=== PATIENT | female | born 1990 | race African-American/Black ===

== ENCOUNTER 2017-08-25 21:07 | Emergency (ER) | payer OTHER, MEDICAID ==
[~2017-08-25] VITALS: Ht 160 cm; Wt 73.5 kg
[~2017-08-25 21:07] MED LIST: DEPO-PROVE150 MG/11 IM; EC-NAPROSYN500 M1 PO; NAPROSYN500 MG PO; NOHOMEMEDICATIONS; NORVASC2.5 MG PO; ONDANSETRON HCL4 M2 PO; PRENA1 CHEW TA1.4 MG PO; PROTONIX40 M4 PO; SPRINTEC1 EACH PO; TRAMADOL 50 MG50 MG PO
[2017-08-25] MEDS ORDERED: CYMBALTA60 MG PO (21:19)
[2017-08-25 21:36] LABS: URINE BILIRUBIN NEGATIVE (Negative); URINE BLOOD NEGATIVE (Negative); URINE CLARITY CLEAR; URINE COLOR YELLOW; URINE GLUCOSE-RANDOM NEGATIVE (Negative); URINE KETONES NEGATIVE (Negative); URINE LEUKOCYTES-REFLEX TRACE (Negative); URINE NITRITE-REFLEX NEGATIVE (Negative); URINE PROTEIN NEGATIVE (Negative); URINE SPECIFIC GRAVITY 1.015 (1.005-1.030); URINE UROBILINOGEN 0.2 E.U./dl (0.2-1.0)
[2017-08-25 21:37] LABS: HEMATOCRIT 29.2 % (37.0-47.0); HEMOGLOBIN 9.9 gm/dL (12.0-15.0); MCH 22.7 pg (26.0-34.0); MCHC 33.9 g/dL (28.0-37.0); MCV 66.7 fL (80.0-100.0); NUCLEATED RBCS 0 /100WBC; PLATELET COUNT* 346 thou/uL (150-400); RBC 4.38 mil/uL (4.20-5.00); RDW-CV 20.8 % (10.5-14.5); WBC 10.6 thou/uL (4.0-11.0)
[2017-08-25 21:51] LABS: CALCIUM 8.2 mg/dL (8.5-10.1); CREATININE 1.1 mg/dL (0.6-1.3); POTASSIUM 3.9 mmol/L (3.5-5.1)
[2017-08-25 21:55] LABS: ALBUMIN 3.2 g/dL (3.4-5.0); TOTAL BILIRUBIN 0.2 mg/dL (<0.1-1.0)
[2017-08-25 22:17] LABS: SQUAMOUS >10 Many /LPF (0-3)
[2017-08-25 22:18] LABS: CASTS None Seen /LPF (None Seen); CRYSTALS None Seen /LPF (None Seen); URINE RBC None Seen /HPF (0-2); URINE WBC-REFLEX 6-15 Few /HPF (0-5)
[2017-08-25 22:33] LABS: ABSOLUTE BASOPHILS 0.1 thou/uL (0.0-0.2); ABSOLUTE EOSINOPHILS 1.3 thou/uL (0.0-0.7); ABSOLUTE LYMPHOCYTES 3.8 thou/uL (0.8-5.3); ABSOLUTE MONOCYTES 0.7 thou/uL (0.0-1.2); ABSOLUTE NEUTROPHILS 4.7 thou/uL (1.6-8.1)
[2017-08-25 22:35] LABS: HYPOCHROMASIA 2+
[2017-08-25 22:36] LABS: ANISOCYTOSIS 2+; MICROCYTES 3+; PLATELET ESTIMATE ADEQUATE; TARGET CELLS Occasional
[2017-08-25] MEDS ORDERED: ZOFRAN4 MG PO (23:23)
[2017-08-25] MEDS ORDERED: CYCLOBENZAPRINE5 MG PO (23:23)
[2017-08-25 23:29] VITALS: BP 127/82
== END 2017-08-25 23:29 | disposition home or self-care (01) ==
LOC: M.ERS 21:07
PROVIDERS: Personal Emergency Response Attendant
DX: K85.90 Acute pancreatitis without necrosis or infection, unspecified (principal); K21.9 Gastro-esophageal reflux disease without esophagitis; Z86.2 Personal history of diseases of the blood and blood-forming organs and certain disorders involving the immune mechanism; Z88.5 Allergy status to narcotic agent

== ENCOUNTER 2017-10-18 17:18 | Emergency (ER) | payer OTHER, MEDICAID ==
[~2017-10-18] VITALS: Ht 160 cm; Wt 79.4 kg
[~2017-10-18 17:18] MED LIST changes: +CYCLOBENZAPRINE5 MG PO; +CYMBALTA60 MG PO; +ZOFRAN4 MG PO
[2017-10-18] MEDS ORDERED: IBUPROFEN 600600 M1 PO (17:31)
[2017-10-18] MEDS ORDERED: KEFLEX500 M1 PO (17:46)
[2017-10-18] MEDS ORDERED: BACTRIM DS TAB1 EACH PO (17:46)
[2017-10-18] MEDS ORDERED: DIFLUCAN150 MG PO (17:46)
[2017-10-18 18:00] VITALS: BP 166/76
== END 2017-10-18 18:00 | disposition home or self-care (01) ==
LOC: M.ERS 17:18
DX: S81.812A Laceration without foreign body, left lower leg, initial encounter (principal); L08.9 Local infection of the skin and subcutaneous tissue, unspecified; K21.9 Gastro-esophageal reflux disease without esophagitis; Z86.2 Personal history of diseases of the blood and blood-forming organs and certain disorders involving the immune mechanism; Z88.5 Allergy status to narcotic agent; W26.8XXA Contact with other sharp object(s), not elsewhere classified, initial encounter; Y93.89 Activity, other specified; Y92.89 Other specified places as the place of occurrence of the external cause; Y99.8 Other external cause status

== ENCOUNTER 2018-03-20 23:42 | Emergency (ER) | payer OTHER, MEDICAID ==
[~2018-03-20] VITALS: Ht 160 cm; Wt 74.8 kg
[~2018-03-20 23:42] MED LIST changes: +BACTRIM DS TAB1 EACH PO; +DIFLUCAN150 MG PO; +IBUPROFEN 600600 M1 PO; +KEFLEX500 M1 PO
[2018-03-21] MEDS ORDERED: ATIVAN1 MG PO (00:09)
[2018-03-21] MEDS ORDERED: PROZAC10 MG PO (00:10)
[2018-03-21] MEDS ORDERED: NEURONTIN250 MG/5 M PO ×2 (00:10→01:02)
[2018-03-21] MEDS ORDERED: MINIPRESS1 MG PO (00:11)
[2018-03-21 01:32] VITALS: BP 145/93
== END 2018-03-21 01:33 | disposition home or self-care (01) ==
LOC: M.ERS 23:42
DX: M25.511 Pain in right shoulder (principal); R20.0 Anesthesia of skin; K21.9 Gastro-esophageal reflux disease without esophagitis; Z90.49 Acquired absence of other specified parts of digestive tract; Z88.5 Allergy status to narcotic agent

== ENCOUNTER 2018-07-12 00:07 | Emergency (ER) | payer OTHER, MEDICAID ==
[~2018-07-12] VITALS: Ht 160 cm; Wt 70.8 kg
[~2018-07-12 00:07] MED LIST changes: +ATIVAN1 MG PO; +MINIPRESS1 MG PO; +NEURONTIN250 MG/5 M PO; +PROZAC10 MG PO
[2018-07-12] MEDS ORDERED: NEURONTIN 300300 M1 PO (00:17)
[2018-07-12 00:30] LABS: URINE BILIRUBIN NEGATIVE (Negative); URINE BLOOD TRACE (Negative); URINE CLARITY SL CLOUDY; URINE COLOR YELLOW; URINE GLUCOSE-RANDOM NEGATIVE (Negative); URINE KETONES TRACE (Negative); URINE NITRITE-REFLEX NEGATIVE (Negative); URINE PROTEIN NEGATIVE (Negative); URINE SPECIFIC GRAVITY >= 1.030 (1.005-1.030); URINE UROBILINOGEN 0.2 E.U./dl (0.2-1.0)
[2018-07-12 00:30] LABS: HEMOGLOBIN 10.7 gm/dL (12.0-15.0)
[2018-07-12 00:35] LABS: URINE LEUKOCYTES-REFLEX 2+ (Negative)
[2018-07-12 00:38] LABS: CASTS None Seen /LPF (None Seen); CRYSTALS None Seen /LPF (None Seen); SQUAMOUS >10 Many /LPF (0-3); URINE RBC 3-10 Few /HPF (0-2)
[2018-07-12 00:38] LABS: HEMATOCRIT 31.8 % (37.0-47.0)
[2018-07-12 00:40] LABS: MCH 23.6 pg (26.0-34.0); MCHC 33.5 g/dL (28.0-37.0); MCV 70.4 fL (80.0-100.0); MPV 8.6 fl. (7.2-11.1); NUCLEATED RBCS 0 /100WBC; PLATELET COUNT* 309 thou/uL (150-400); RBC 4.52 mil/uL (4.20-5.00); RDW-CV 20.1 % (10.5-14.5); WBC 8.8 thou/uL (4.0-11.0)
[2018-07-12 00:45] LABS: CALCIUM 8.5 mg/dL (8.5-10.1); CREATININE 1.1 mg/dL (0.6-1.3); POTASSIUM 3.7 mmol/L (3.5-5.1)
[2018-07-12 00:50] LABS: ALBUMIN 3.3 g/dL (3.4-5.0); TOTAL BILIRUBIN 0.2 mg/dL (<0.1-1.0)
[2018-07-12 00:55] LABS: AMP/METHAMP Negative (Negative); BARBITURATES Negative (Negative); BENZODIAZEPINES Negative (Negative); COCAINE Negative (Negative); METHADONE Negative (Negative); OPIATES Negative (Negative); PCP Negative (Negative); THC POSITIVE (Negative)
[2018-07-12 00:57] LABS: LIPASE 351 U/L (73-393); TROPONIN-I LEVEL <0.06 ng/mL (<0.06)
[2018-07-12 01:02] LABS: ABSOLUTE EOSINOPHILS 0.6 thou/uL (0.0-0.7); ABSOLUTE LYMPHOCYTES 4.8 thou/uL (0.8-5.3); ABSOLUTE MONOCYTES 0.4 thou/uL (0.0-1.2); ANISOCYTOSIS 1+; MICROCYTES 2+; PLATELET ESTIMATE ADEQUATE; TARGET CELLS 2+
[2018-07-12 01:03] LABS: HYPOCHROMASIA 1+; OVALOCYTES Occasional; POLYCHROMASIA 1+
[2018-07-12] MEDS ORDERED: PRILOSEC 20 MG20 MG PO (03:43)
[2018-07-12] MEDS ORDERED: CARAFATE 1 GM TA1 GM PO (03:43)
[2018-07-12] MEDS ORDERED: HYDROCODON-ACE1 EAC8 PO (03:43)
[2018-07-12] MEDS ORDERED: CIPROFLOXACIN500 M1 PO (03:45)
[2018-07-12 04:03] VITALS: BP 117/50
--- NOTE | 2018-07-12 13:10 | EKG ---
[place] [address] ELECTROCARDIOGRAM REPORT Name: PANDA ONEIL Room: [facility]#: [id number] Admission: 07/12/18 Attend Phys: Discharge: 07/12/18 Date of : [birth year] Report #: [id number] THIS REPORT FOR: //name// [facility] ED Test Date: 2018-07-12 Test Time: 01:02:38 Pat Name: PANDA ONEIL Department: Room: Gender: F Wood Cutter: CASSIE : 1990 Requested By: Montse Delvalle Order Number: [id number] MD: Jorge Lin Measurements Intervals [place] Rate: 68 P: 5 KS: 120 QRS: 37 QRSD: 90 T: 10 QT: 442 QTc: 471 Interpretive Statements Sinus rhythm Borderline prolonged QT interval No previous ECG available for comparison Electronically Signed On 07-12-2018 13:09:48 [employer] by Jorge Lin [email or web address] <ELECTRONICALLY SIGNED> By: Jorge Lin MD, [facility] 07/12/18 1309 0102 0102 Jorge Lin MD, FACC /EPI
== END 2018-07-12 04:03 | disposition home or self-care (01) ==
LOC: M.ERS 00:07
PROVIDERS: Emergency Medicine; Nurse Practitioner Family
DX: K29.80 Duodenitis without bleeding (principal); N39.0 Urinary tract infection, site not specified; N80.9 Endometriosis, unspecified; K21.9 Gastro-esophageal reflux disease without esophagitis; G62.9 Polyneuropathy, unspecified; Z86.2 Personal history of diseases of the blood and blood-forming organs and certain disorders involving the immune mechanism; Z88.8 Allergy status to other drugs, medicaments and biological substances; Z90.49 Acquired absence of other specified parts of digestive tract